=== PATIENT | male | born 1965 | race African-American/Black ===

== ENCOUNTER 2022-04-30 21:51 | Emergency (ER) | payer BC ==
[~2022-04-30] VITALS: Ht 175.3 cm; Wt 120.2 kg
[2022-04-30 22:24] LABS: PLATELET COUNT 152 K/uL (142-355)
[2022-04-30 22:37] LABS: POTASSIUM 4.4 mmol/L (3.6-5.2)
[2022-05-01 00:35] VITALS: BP 127/85; TEMP 98
== END 2022-05-01 00:35 | disposition home or self-care (01) ==
LOC: ED 21:51
PROVIDERS: Family Medicine
DX: I10 Essential (primary) hypertension (principal); E11.65 Type 2 diabetes mellitus with hyperglycemia
CPT/HCPCS: 36415; 36600; 80053; 82805; 82948; 85027; 96360; 96361; 96374; 96376; 99284; J1815